=== PATIENT | male | born 1970 | race Hispanic/Latino ===

== ENCOUNTER → 2024-12-07 | Outpatient (CLI) | payer BC, OTHER ==
[~2024-12-07] MED LIST: GADOTERATE MEGLUMINE 10 MMOL/20 ML VIAL IV ONE
--- NOTE | 2024-12-08 15:49 | HMCIMG ---
EXAMINATION: MR CHOLANGIOPANCREATOGRAPHY CLINICAL HISTORY: Patient presents with abnormal prior imaging. COMPARISON: None provided. TECHNIQUE: Multiplanar images were obtained without intravenous contrast, utilizing a series of customized pulse sequences. Sagittal and coronal reformatted images submitted for interpretation. FINDINGS: Liver: The liver is enlarged, measuring approximately 17.5 cm in craniocaudal span. There is diffuse hepatic steatosis. A few small T2 hyperintense lesions are scattered in the right hepatic lobe, the largest measuring 0.4 x 0.4 x 0.4 cm, too small to characterize. Gallbladder and Biliary System: A 2.6 cm gallbladder calculus is present. There is mild diffuse gallbladder wall thickening and edema in the body region, with a maximum wall thickness of approximately 0.5 cm, consistent with cholecystitis. The common bile duct is mildly dilated, measuring approximately 1.0 cm in diameter, with an abrupt transition in the terminal portion, suggestive of a distal common bile duct stricture. Pancreas: Unremarkable. No mass or peripancreatic fluid. Spleen: Normal in size and configuration. Adrenal Glands: Normal bilaterally. No masses. Kidneys: Normal in size and configuration. No evidence of stone, hydronephrosis, mass, or significant cyst. Retroperitoneum: No mass or lymphadenopathy. Aorta: The visualized abdominal aorta is normal in size and configuration. No stenosis or aneurysm. Bowel/Mesentery: Normal. No evidence of bowel dilatation or wall thickening. No free or loculated fluid, mesenteric stranding, or lymphadenopathy. Abdominal Wall: Normal. IMPRESSION: Hepatomegaly with diffuse hepatic steatosis. 2.6 cm gallbladder calculus with mild gallbladder wall thickening and edema. In the appropriate clinical setting, this may represent acute cholecystitis. 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 No ductal stones identified. Few subcentimeter T2 hyperintense lesions in the right hepatic lobe, too small to characterize but likely represent cysts. /[place]
== END | disposition home or self-care (01) ==
LOC: RAH 07:44
PROVIDERS: ATTEND Internal Medicine Gastroenterology
DX: K76.0 Fatty (change of) liver, not elsewhere classified (principal); K80.21 Calculus of gallbladder without cholecystitis with obstruction; R16.0 Hepatomegaly, not elsewhere classified; R93.2 Abnormal findings on diagnostic imaging of liver and biliary tract
CPT/HCPCS: 74183; A9575